=== PATIENT | male | born 1955 | race Caucasian/White ===

== ENCOUNTER 2016-07-31 10:10 | Emergency (ER) | payer OTHER ==
[2016-07-31 10:50] VITALS: BP 142/81
[2016-07-31] MEDS ORDERED: Tetan/Diph/Pertus SYR(Tdap)* 0.5 ML SYR(BOOSTRIX) use SYR IM ONE (11:05)
--- NOTE | 2016-07-31 11:10 | UC ---
Skin Complaint HPI - HPI Summary HPI Summary: cleaning under bleachers, stood up and hit his head. Bled all over the floor. No LOC. Needs tetanus update. No other injury - History of Current Complaint Chief Complaint: UCHeadInjury Time Seen by Provider: 07/31/16 11:00 Stated Complaint: HEAD LACERATION Hx Obtained From: Patient, Family/Offline Cutter Onset/Duration: Sudden Onset, Lasting Hours - 2 Timing: Constant Onset Severity: Moderate Current Severity: Mild Location: Other - top of scalp Character: Painful Aggravating: Touch Alleviating: Nothing Associated Signs & Symptoms: Positive: Bruising, Tenderness Related History: Trauma - Allergy/Home Medications Allergies/Adverse Reactions: Allergies Allergy/AdvReac Type Severity Reaction Status Date / Time Acetaminophen Allergy Nausea Verified 07/31/16 10:50 [From Tylenol with Codeine #3] Codeine Allergy Nausea Verified 07/31/16 10:50 [From Tylenol with Codeine #3] Home Medications: Home Medications NK [No Home Medications Reported] 07/31/16 [History Confirmed 07/31/16] Review of Systems Constitutional: Negative Skin: Bruising, Other - laceration scalp Eyes: Negative ENT: Negative Respiratory: Negative Cardiovascular: Negative Gastrointestinal: Negative Genitourinary: Negative Motor: Negative Neurovascular: Negative Musculoskeletal: Negative Neurological: Negative Psychological: Negative All Other Systems Reviewed And Are Negative: Yes PMH/Surg Hx/FS Hx/Imm Hx Previously Healthy: Yes Endocrine History Of: Denies: Diabetes, Thyroid Disease Cardiovascular History Of: Denies: Cardiac Disorders, Hypertension Respiratory History Of: Denies: COPD, Asthma GI/ History Of: Denies: Ulcer - Surgical History Surgical History: None - Family History Known Family History: Negative: Respiratory Disease - Social History 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 Lives: With Family Alcohol Use: None Substance Use Type: None Smoking Status (MU): Unknown if Ever Smoked Type: Smokeless Tobacco Physical Exam Triage Information Reviewed: Yes Appearance: Well-Appearing, No Pain Distress, Well-Nourished Vital Signs: Initial Vital Signs Temp 98.0 F 07/31/16 10:45 Pulse 80 07/31/16 10:45 Resp 18 07/31/16 10:45 BP 142/81 07/31/16 10:45 Pulse Ox 97 07/31/16 10:45 Vital Signs Reviewed: Yes Eye Exam: Normal ENT Exam: Normal Neck exam: Normal Respiratory Exam: Normal Cardiovascular Exam: Normal Musculoskeletal Exam: Normal Neurological Exam: Normal Psychological Exam: Normal Skin Exam: Other - 2.5cm linear laceration on top of head. Minimal oozing. No skin loss. Laceration Repair - Laceration Repair 1 Description: Linear Laceration Size After Repair: Length (cm) - 2.5 Modified For Repair: No Cleansing Completed Via Routine Prep: Yes Irrigation With Pressure Irrigation Device: Yes Closure Material: Skin Adhesive Closure Method: Single Layer Course/Dx - Diagnoses Provider Diagnoses: scalp laceration Discharge - Discharge Plan Condition: Stable Disposition: HOME Patient Education Materials: Laceration (ED) Referrals: Albin Michel MD [Primary Care Provider] - Additional Instructions: Try not to peel off the glue for at least 2 or 3 days. YOu can get it wet in the shower, but don't scrub or scratch the area. The glue will peel off on its own after 5 or 6 days. It will protect the cut, keep it from bleeding, and keep infection out. You had a tetanus shot today. You will need another around the year 2024
== END 2016-07-31 11:40 | disposition home or self-care (01) ==
LOC: UCEAST 10:10
DX: S01.01XA Laceration without foreign body of scalp, initial encounter (principal); Z23 Encounter for immunization; W22.09XA Striking against other stationary object, initial encounter; Y93.9 Activity, unspecified; Z88.5 Allergy status to narcotic agent
CPT/HCPCS: 12001; 90471; 90715; 99201; G0463

== ENCOUNTER 2016-12-23 13:52 | Emergency (ER) | payer BC, OTHER ==
[2016-12-23 14:00] VITALS: BP 136/81
--- NOTE | 2016-12-23 18:05 | UC ---
Mary Kate Fish Alfonso, scribed for Evert Stack MD on 12/23/16 at 1531 . UC General HPI - HPI Summary HPI Summary: This patient is a 61 year old M presenting to [facility] accompanied by sister with a chief complaint of febrile illness since 10 days ago. Pt reports that his symptoms are worse as of today. Pt was diagnosed with sinusitis 10 days ago. Pt was diagnosed with pneumonia 3 days ago. He was prescribed Cefuroxime BID, Azithromycin, and Guaifenesin AC. Sx aggravated and alleviated by nothing. Pt reports diaphoresis, productive cough, rhinorrhea, sinus congestion, loss of appetite, and an ear ache. Pt denies calf swelling. Patient medications reviewed this visit. - History of Current Complaint Chief Complaint: UCRespiratory Stated Complaint: PNEUMONIA Time Seen by Provider: 12/23/16 15:19 Hx Obtained From: Patient, Family/Track Machine Operator Repairer - Sister Onset/Duration: Sudden Onset, Lasting Days - 10, Worse Since - yesterday Timing: Constant Onset Severity: Moderate Current Severity: Moderate Pain Intensity: 3 - /10 Aggravating: Nothing Alleviating: Nothing Associated Signs & Symptoms: Positive: Other - Positive diaphoresis, productive cough, rhinorrhea, sinus congestion, loss of appetite, and an ear ache; negative calf swelling. - Allergy/Home Medications Allergies/Adverse Reactions: Allergies Allergy/AdvReac Type Severity Reaction Status Date / Time Acetaminophen Allergy Nausea Verified 07/31/16 10:50 [From Tylenol with Codeine #3] Codeine Allergy Nausea Verified 07/31/16 10:50 [From Tylenol with Codeine #3] Home Medications: Home Medications Azithromycin [Azithromycin 500 MG TAB] 500 mg PO 12/23/16 [History] Guaifenesin-Codeine [Coditussin AC 200-10 mg/5Ml] 1 liq PO 12/23/16 [History] PMH/Surg Hx/FS Hx/Imm Hx - Surgical History Surgical History: None - Family History Known Family History: Negative: Respiratory Disease - Social History Alcohol Use: None Substance Use Type: None Smoking Status (MU): Unknown if Ever Smoked Type: Smokeless Tobacco Review of Systems Constitutional: Fever, Other - Positive diaphoresis ENT: Ear Ache, Sinus Congestion, Other - Positive rhinorrhea Respiratory: Cough - productive Gastrointestinal: Other - Positive loss of appetite Musculoskeletal: Other: - Negative calf swelling. All Other Systems Reviewed And Are Negative: Yes Physical Exam Triage Information Reviewed: Yes Appearance: Well-Appearing, No Pain Distress Vital Signs: Initial Vital Signs Temp 97.9 F 12/23/16 13:55 Pulse 90 12/23/16 13:55 Resp 18 12/23/16 13:55 BP 136/81 12/23/16 13:55 Pulse Ox 95 12/23/16 13:55 Vital Signs Reviewed: Yes Eyes: Positive: Other: - EOMI ALEC ENT: Positive: Other: - Yellow sputum. Rhinorrhea. Neck: Positive: Supple, Nontender Respiratory: Positive: No respiratory distress, Rhonchi Cardiovascular: Positive: RRR Abdomen Description: Positive: Nontender, Soft Bowel Sounds: Positive: Present Musculoskeletal: Positive: Strength Intact Neurological: Positive: Alert Psychological: Positive: Age Appropriate Behavior Course/Dx - Course Course Of Treatment: RX TESSALON PERLES. CONTINUE ZPACK. PATIENT OVERALL IS IMPROVING. RETURN IF WORSE. - Differential Dx - Multi-Symptom Provider Diagnoses: BRONCHITIS/SINUSITIS WITH COUGH Discharge - Discharge Plan Condition: Stable Disposition: HOME Prescriptions: Benzonatate CAP* [Tessalon 100 MG CAP*] 100 mg PO TID PRN #15 cap PRN Reason: Cough Forms: *Work Release Referrals: Sheryl Whitley MD [Primary Care Provider] - Additional Instructions: FOLLOW UP WITH YOUR DOCTOR. GET RECHECKED FOR ANY WORSENING OF YOUR CONDITION OR QUESTIONS OR CONCERNS. The documentation as recorded by the Mary Kate merritt Alfonso accurately reflects the service I personally performed and the decisions made by me, Evert Stack MD.
== END 2016-12-23 15:43 | disposition home or self-care (01) ==
LOC: UCEAST 13:52
DX: J40 Bronchitis, not specified as acute or chronic (principal); J32.9 Chronic sinusitis, unspecified
CPT/HCPCS: 99212; G0463

== ENCOUNTER 2016-12-24 07:26 | Inpatient (IN) | payer BC ==
[2016-12-24] MEDS ORDERED: Albuterol/Ipratropium NEB.SOL* Albuterol 2.5 MG/Ipratropium 0.5 MG 3 ML INH ONE (08:23)
[2016-12-24] MEDS: NS 0.9% 1000 ML* 3,000 ML IV ONE ×2 (08:35→10:23)
[2016-12-24 08:43] LABS: Hematocrit 41 % (42-52); Hemoglobin 13.5 g/dl (14.0-18.0); Mean Corpuscular HGB Conc 33 g/dl (31-36); Mean Corpuscular Hemoglobin 29 pg (27-31); Mean Corpuscular Volume 88 fL (80-94); Mean Platelet Volume 7 um3 (7.4-10.4); Red Blood Count 4.66 10^6/ul (4.0-5.4); Red Cell Distribution Width 13 % (10.5-15); White Blood Count 8.7 10^3/ul (3.5-10.8)
[2016-12-24 09:03] LABS: Albumin 3.8 g/dL (3.2-5.2); BUN/Creatinine Ratio 10.8 (8-20); C Reactive Protein 11.33 mg/L (< 5.00); Calcium 9.3 mg/dL (8.6-10.3); EGFR Non-African American 83.2 (>60); Globulin 3.1 g/dL (2-4); Potassium 3.6 mmol/L (3.5-5.0); Total Bilirubin 0.4 mg/dL (0.2-1.0); Total Protein 6.9 g/dL (6.4-8.9)
[2016-12-24] MEDS ORDERED: Azithromycin IV(*) 500 MG in NS 0.9% 250 ML* 250 ML IVPB ONE (10:03)
[2016-12-24] MEDS ORDERED: cefTRIAXone(*) 1 GM in NS 0.9% 50 ML* 50 ML IVPB ONE (10:03)
[2016-12-24] MEDS ORDERED: Benzonatate CAP* 100 MG PO PRN (10:15)
[2016-12-24] MEDS ORDERED: Acetaminophen TAB* 325 MG PO PRN (10:18)
--- NOTE | 2016-12-24 10:19 | RAD ---
INDICATION: Cough, shortness of breath. COMPARISON: Comparison is made with a prior chest x-ray study from March 27, 2010. TECHNIQUE: Dual-energy PA and lateral views of the chest were obtained. FINDINGS: The heart is within normal limits in size. Mediastinal and hilar contours appear within normal limits. There is a relatively prominent infiltrate present at the right lung base involving the right middle and lower lobes most consistent with pneumonia. There is a trace right pleural effusion. The left lung appears clear. IMPRESSION: RIGHT MIDDLE AND LOWER LOBE INFILTRATES MOST CONSISTENT WITH PNEUMONIA.
[2016-12-24] MEDS: Heparin VIAL(*) 5000 UNITS/ML VIAL (FIVE THOUSAND) SUBCUT SCH ×2 (14:58→21:34)
[2016-12-24 15:25] LABS: Urine Bilirubin Negative (Negative); Urine Glucose Negative (Negative); Urine Nitrite Negative (Negative)
--- NOTE | 2016-12-24 15:53 | HP ---
HISTORY AND PHYSICAL: DATE OF ADMISSION: 12/24/16 PRIMARY CARE PHYSICIAN: He has no primary care physician. CHIEF COMPLAINT: Cough and fever. HISTORY OF PRESENT ILLNESS: The patient is a 61-year-old gentleman. Since last week, he thought he was coming down with the sinus inflection and went to [facility], who agreed and put him on antibiotic, but he does not know the name of. He did not get better, then went to his sister's doctor, who thought he had bronchitis and he got a different antibiotic. Still with no improvement, he went to [facility], where he got some medicine for the cough. Because of no improvement, he finally came to the ER, where he was evaluated. He has lots of postnasal drip, cough productive of yellow thick phlegm. He has wheezing. He had shortness of breath last night, where he could not catch his breath, but it is better today. He has no chest pain, but he has fevers and chills. In the ED, the patient was evaluated and appears to have a right lower lobe infiltrate on x-ray. PAST MEDICAL HISTORY: Significant only for migraine and he had a broken leg that was repaired in 3 places at [facility] several years ago. MEDICATIONS: He is currently on no medications except Excedrin for migraine. ALLERGIES: Adverse reaction to acetaminophen and codeine. FAMILY HISTORY: Father is alive, has hypertension, at 85 years old. Mother at 55 of unknown cancer. SOCIAL HISTORY: Does not smoke, but chews tobacco. Ex-alcohol abuse, quit a year ago after a DWI. No recreational drug use. 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 He is not . He has no children. REVIEW OF SYSTEMS: A 14-point review of systems was completed with the patient. All pertinent positives and negatives are in the history of present illness, otherwise negative. PHYSICAL EXAMINATION GENERAL: A pleasant gentleman, disheveled, sitting up in bed, in no acute distress. VITAL SIGNS: Temperature 98 degrees, heart rate 85 beats per minute, respiratory rate 16 breaths per minute, pulse ox 96%, blood pressure is 109/59. HEENT: Normocephalic and atraumatic. Pupils are equal, round, and reactive to light. Moist mucous membranes. NECK: Supple. No JVD, bruits, palpable thyroid or lymphadenopathy. CHEST: Clear to auscultation and percussion bilaterally. CARDIOVASCULAR: S1, S2 appreciated. Regular rate and rhythm. ABDOMEN: Positive bowel sounds in all 4 quadrants. Soft, nontender, nondistended. No hepatosplenomegaly. EXTREMITIES: No cyanosis, clubbing, or edema. +2 peripheral pulses bilaterally. NEURO: Alert and oriented x3. Moves all extremities. SKIN: No rashes or abnormalities. DIAGNOSTIC STUDIES/LAB DATA: White count 8.7, hemoglobin 13.5, hematocrit 41, platelets 412. Sodium 137, potassium 3.6, chloride 103, CO2 of 26, BUN 10, creatinine 1.93, glucose is 94. Chest x-ray was interpreted by Radiology as right middle and lower lobe infiltrate, most consistent with pneumonia. EKG show normal sinus rhythm at 97 beats per minute, normal axis, some nonspecific ST-T wave changes. ASSESSMENT AND PLAN: 1. New right lower lobe pneumonia. The patient has failed outpatient treatment. We will place on Rocephin and Zithromax IV. Check sputum C and S, urine for Legionella and Pneumococcal antigen. Tessalon Perles for cough. 2. FEN, regular diet. 3. DVT prophylaxis, heparin subcu 4. The patient is a full code. TIME SPENT: Over 75 minutes was spent on this H and P, more than 45 minutes of which was spent in direct mgdb-to-pdye contact with the patient in evaluation, physical exam, and counseling and coordination of care. [id number]/[facility] #: [id number] [place]
--- NOTE | 2016-12-24 18:58 | ED ---
Rosalie Fish Seung-Jae, scribed for Sal Cristina MD on 12/24/16 at 1045 . Respiratory - HPI Summary HPI Summary: Pt is a 61 y/o M presenting to the ED with c/o coughing and congestion. Onset was during last midnight. The associated Sx are SOB and fever. The coughing is not worsened by walking or sitting up. Pt denies edema, N/V, CP, and pain in legs. Pt had taken 1 abx pill yesterday. Pt does not have asthma and does not smoke. 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 Has a hx of post nasal drip. - History of Current Complaint Chief Complaint: EDGeneral Stated Complaint: COUGH/CHEST CONGESTION Time Seen by Provider: 12/24/16 08:10 Hx Obtained From: Patient Onset/Duration: Sudden Onset Timing: Constant Pain Intensity: 0 Associated Signs and Symptoms: Fever - subjective fever, SOB, Nasal Congestion - Allergy/Home Medications Allergies/Adverse Reactions: Allergies Allergy/AdvReac Type Severity Reaction Status Date / Time Acetaminophen Allergy Nausea Verified 07/31/16 10:50 [From Tylenol with Codeine #3] Codeine Allergy Nausea Verified 07/31/16 10:50 [From Tylenol with Codeine #3] PMH/Surg Hx/FS Hx/Imm Hx Endocrine/Hematology History: Denies: Hx Diabetes, Hx Thyroid Disease Cardiovascular History: Denies: Hx Hypertension Respiratory History: Denies: Hx Asthma, Hx Chronic Obstructive Pulmonary Disease (COPD) GI History: Denies: Hx Ulcer Infectious Disease History: No Infectious Disease History: Denies: Hx Hepatitis, Hx Human Immunodeficiency Virus (HIV), Traveled Outside the [place] in Last 30 Days - Family History Known Family History: Negative: Respiratory Disease - Social History Alcohol Use: None Alcohol Amount: used to drink, has since quit Substance Use Type: Reports: None Smoking Status (MU): Never Smoked Tobacco Type: Smokeless Tobacco Review of Systems Positive: Fever Positive: Other - nose congestion Positive: Shortness Of Breath, Cough, Other - negative asthma Negative: Vomiting, Nausea Positive: Other - negative pain in legs . Negative: Edema All Other Systems Reviewed And Are Negative: Yes Physical Exam - Summary Physical Exam Summary: The patient is well-nourished in no acute distress and in no acute pain. The skin is warm and dry and skin color reflects adequate perfusion. good skin turgor. HEENT: The head is normocephalic and atraumatic. The pupils are equal and reactive. The conjunctivae are clear and without drainage. Nares are patent and without drainage. Mouth reveals moist mucous membranes. The external ears are intact. The ear canals are patent and without drainage. The tympanic membranes are intact. Post nasal drip. no sinus tenderness. erythema in posterial pharynx. Neck is supple with full range of motion and non-tender. There are no carotid bruits. There is neck vein distension. no cervical adenopathy Respiratory: Chest is non-tender. Lungs are clear to auscultation and breath sounds are symmetrical and equal. erythema in posterior pharynx. wheezing and right rhonchi Cardiovascular: Hear is regular rate and rhythm. There is no murmur or rub auscultated. There is no peripheral edema and pulses are symmetrical and equal. Abdomen: The abdomen is soft and non-tender. There are normal bowel sounds heard in all four quadrants and there is no organomegaly palpated. Musculoskeletal: There is no back pain noted. Extremities are non-tender with full range of motion. There is good capillary refill. There is no peripheral edema or calf tenderness elicited. Neurological: Patient is alert and oriented to person, place and time. The patient has symmetrical motor strength in all four extremities. Cranial nerves are grossly intact. Deep tendon reflexes are symmetrical and equal in all four extremities. Psychiatric: The patient has an appropriate affect and does not exhibit any anxiety or depression. PE: post nasal drip. no sinus tenderness. heart regualr. no cervical adenopathy. wheezing and right rhonchi. neck pain distension. good skin turbar. 2 second capillary refill. Vital Signs On Initial Exam: Initial Vitals Temp Pulse Resp BP Pulse Ox 97.8 F 89 17 126/67 98 12/24/16 07:31 12/24/16 07:31 12/24/16 07:31 12/24/16 07:31 12/24/16 07:31 - [place] Coma Scale Coma Scale Total: 15 Diagnostics - Vital Signs Vital Signs Temp Pulse Resp BP Pulse Ox 12/24/16 08:00 77 90 12/24/16 07:41 87 95 12/24/16 07:40 97.8 F 86 16 120/66 94 07/17/17 07:39 120/66 12/24/16 07:31 97.8 F 89 17 126/67 98 - Laboratory Lab Results: Lab Results 12/24/16 12/24/16 12/24/16 Range/Units 08:35 08:35 08:35 WBC 8.7 (3.5-10.8) 10^3/ul RBC 4.66 (4.0-5.4) 10^6/ul Hgb 13.5 L (14.0-18.0) g/dl Hct 41 L (42-52) % MCV 88 (80-94) fL MCH 29 (27-31) pg MCHC 33 (31-36) g/dl RDW 13 (10.5-15) % Plt Count 412 (150-450) 10^3/ul MPV 7 L (7.4-10.4) um3 Neut % (Auto) 74.7 (38-83) % Lymph % (Auto) 14.0 L (25-47) % [place] % (Auto) 5.3 (1-9) % Eos % (Auto) 4.6 (0-6) % Baso % (Auto) 1.4 (0-2) % Absolute Neuts (auto) 6.5 (1.5-7.7) 10^3/ul Absolute Lymphs (auto) 1.2 (1.0-4.8) 10^3/ul Absolute Monos (auto) 0.5 (0-0.8) 10^3/ul Absolute Eos (auto) 0.4 (0-0.6) 10^3/ul Absolute Basos (auto) 0.1 (0-0.2) 10^3/ul Absolute Nucleated RBC 0 10^3/ul Nucleated RBC % 0 Sodium 137 (133-145) mmol/L Potassium 3.6 (3.5-5.0) mmol/L Chloride 103 (101-111) mmol/L Carbon Dioxide 26 (22-32) mmol/L Anion Gap 8 (2-11) mmol/L BUN 10 (6-24) mg/dL Creatinine 0.93 (0.67-1.17) mg/dL Est GFR ( Amer) 107.0 (>60) Est GFR (Non-Af Amer) 83.2 (>60) BUN/Creatinine Ratio 10.8 (8-20) Glucose 94 (70-100) mg/dL Lactic Acid 0.8 (0.5-2.0) mmol/L Calcium 9.3 (8.6-10.3) mg/dL Total Bilirubin 0.40 (0.2-1.0) mg/dL AST 15 (13-39) U/L ALT 16 (7-52) U/L Alkaline Phosphatase 68 (34-104) U/L Troponin I 0.00 (<0.04) ng/mL C-Reactive Protein 11.33 H (< 5.00) mg/L B-Natriuretic Peptide ( - 100) pg/mL Total Protein 6.9 (6.4-8.9) g/dL Albumin 3.8 (3.2-5.2) g/dL Globulin 3.1 (2-4) g/dL Albumin/Globulin Ratio 1.2 (1-3) Urine Color Urine Appearance Urine pH (5-9) Ur Specific [place] (1.010-1.030) Urine Protein (Negative) Urine Ketones (Negative) Urine Blood (Negative) Urine Nitrate (Negative) Urine Bilirubin (Negative) Urine Urobilinogen (Negative) Ur Leukocyte Esterase (Negative) Urine Glucose (Negative) 12/24/16 12/24/16 Range/Units 08:35 09:08 WBC (3.5-10.8) 10^3/ul RBC (4.0-5.4) 10^6/ul Hgb (14.0-18.0) g/dl Hct (42-52) % MCV (80-94) fL MCH (27-31) pg MCHC (31-36) g/dl RDW (10.5-15) % Plt Count (150-450) 10^3/ul MPV (7.4-10.4) um3 Neut % (Auto) (38-83) % Lymph % (Auto) (25-47) % [place] % (Auto) (1-9) % Eos % (Auto) (0-6) % Baso % (Auto) (0-2) % Absolute Neuts (auto) (1.5-7.7) 10^3/ul Absolute Lymphs (auto) (1.0-4.8) 10^3/ul Absolute Monos (auto) (0-0.8) 10^3/ul Absolute Eos (auto) (0-0.6) 10^3/ul Absolute Basos (auto) (0-0.2) 10^3/ul Absolute Nucleated RBC 10^3/ul Nucleated RBC % Sodium (133-145) mmol/L Potassium (3.5-5.0) mmol/L Chloride (101-111) mmol/L Carbon Dioxide (22-32) mmol/L Anion Gap (2-11) mmol/L BUN (6-24) mg/dL Creatinine (0.67-1.17) mg/dL Est GFR ( Amer) (>60) Est GFR (Non-Af Amer) (>60) BUN/Creatinine Ratio (8-20) Glucose (70-100) mg/dL Lactic Acid (0.5-2.0) mmol/L Calcium (8.6-10.3) mg/dL Total Bilirubin (0.2-1.0) mg/dL AST (13-39) U/L ALT (7-52) U/L Alkaline Phosphatase (34-104) U/L Troponin I (<0.04) ng/mL C-Reactive Protein (< 5.00) mg/L B-Natriuretic Peptide 32 ( - 100) pg/mL Total Protein (6.4-8.9) g/dL Albumin (3.2-5.2) g/dL Globulin (2-4) g/dL Albumin/Globulin Ratio (1-3) Urine Color Straw Urine Appearance Clear Urine pH 7.0 (5-9) Ur Specific [place] 1.005 L (1.010-1.030) Urine Protein Negative (Negative) Urine Ketones Trace H (Negative) Urine Blood Negative (Negative) Urine Nitrate Negative (Negative) Urine Bilirubin Negative (Negative) Urine Urobilinogen Negative (Negative) Ur Leukocyte Esterase Negative (Negative) Urine Glucose Negative (Negative) Result Diagrams: 12/24/16 08:35 12/24/16 08:35 Lab Statement: Any lab studies that have been ordered have been reviewed, and results considered in the medical decision making process. - Radiology Chest XR Xray Interpretation: Positive (See Comments) - Left lower lobe PNA. Radiology Interpretation Completed By: Radiologist Disposition - Course Assessment/Plan: pt was on two course of outpatient antibiotics. pt has increased cough and sob. chest x-ray reveals an infiltrate of right lower lobe. pt stared on Rocephin and Zithromax. pt. was administered Duoneb treatment. hospitalist, Dr. Rosa was consulted for admission. - Differential Dx - Cardiopulmonary Differential Diagnoses - Cardiopulmonary: Acute Dyspnea, CHF, Lower Resp Infection - Diagnoses Provider Diagnoses: Right lower lobe pneumonia - Physician Notifications Discussed Care Of Patient With: Baldemar Rosa Time Discussed With Above Provider: 10:10 - Critical Care Time Critical Care Time: 30-74 min - 30 minutes Discharge - Discharge Plan Condition: Good Disposition: ADMITTED TO [facility] The documentation as recorded by the Rosalie merritt Seung-Jae accurately reflects the service I personally performed and the decisions made by , Sal Cristina MD.
[2016-12-25] MEDS: Heparin VIAL(*) 5000 UNITS/ML VIAL (FIVE THOUSAND) SUBCUT SCH ×3 (06:16→21:38)
--- NOTE | 2016-12-25 08:51 | PN ---
Subjective Date of Service: 12/25/16 Interval History: Pt feels SOB with exertion. coughs up yellow sputum. good appetite Objective Active Medications: Acetaminophen (Tylenol Tab*) 650 mg PO Q4H PRN PRN Reason: FEVER/PAIN Benzonatate (Tessalon Cap*) 200 mg PO TID PRN PRN Reason: COUGH Heparin Sodium (Porcine) (Heparin Vial(*)) 5,000 units SUBCUT Q8HR RHETT Last Admin: 12/25/16 06:16 Dose: 5,000 units Ceftriaxone Sodium 1,000 mg/ (Sodium Chloride) 50 mls @ 200 mls/hr IVPB Q24H RHETT Azithromycin 500 mg/ Sodium (Chloride) 250 mls @ 250 mls/hr IVPB Q24H RHETT Pneumococcal Polyvalent Vaccine (Pneumococcal Vac Polyvalent*) 0.5 ml IM .ONCE ONE Stop: 12/25/16 09:01 Last Admin: 12/25/16 07:56 Dose: 0.5 ml Vital Signs 12/24/16 12/24/16 12/24/16 12:31 12:36 15:17 Temperature 98.0 F 98 F 98.5 F Pulse Rate 85 85 85 Respiratory 16 16 17 Rate Blood Pressure 109/59 109/59 98/64 (mmHg) O2 Sat by Pulse 96 96 98 Oximetry 12/24/16 12/24/16 12/25/16 19:20 23:34 03:14 Temperature 98.3 F 98.2 F Pulse Rate 73 77 Respiratory 17 16 18 Rate Blood Pressure 81/50 149/100 (mmHg) O2 Sat by Pulse 96 98 Oximetry 12/25/16 12/25/16 04:32 07:33 Temperature 98.0 F 98.3 F Pulse Rate 72 66 Respiratory 16 18 Rate Blood Pressure 95/50 106/62 (mmHg) O2 Sat by Pulse 97 94 Oximetry Oxygen Devices in Use Now: None Appearance: 61 yo M in nAD, aAOx3 Eyes: No Scleral Icterus, PERRLA Ears/Nose/Mouth/Throat: NL Teeth, Lips, Gums, Mucous Membranes Moist Neck: NL Appearance and Movements; NL JVP, Trachea Midline Respiratory: Symmetrical Chest Expansion and Respiratory Effort, - - decreased breath sounds at RLL Cardiovascular: NL Sounds; No Murmurs; No JVD, RRR Abdominal: NL Sounds; No Tenderness; No Distention Lymphatic: No Cervical Adenopathy Extremities: No Edema, No Clubbing, Cyanosis Skin: No Rash or Ulcers, No Nodules or Sclerosis Neurological: Alert and Oriented x 3, NL Muscle Strength and Tone Result Diagrams: 12/24/16 08:35 12/24/16 08:35 Additional Lab and Data: Lab Results 12/24/16 12/24/16 12/24/16 Range/Units 08:35 08:35 08:35 WBC 8.7 (3.5-10.8) 10^3/ul RBC 4.66 (4.0-5.4) 10^6/ul Hgb 13.5 L (14.0-18.0) g/dl Hct 41 L (42-52) % MCV 88 (80-94) fL MCH 29 (27-31) pg MCHC 33 (31-36) g/dl RDW 13 (10.5-15) % Plt Count 412 (150-450) 10^3/ul MPV 7 L (7.4-10.4) um3 Neut % (Auto) 74.7 (38-83) % Lymph % (Auto) 14.0 L (25-47) % [place] % (Auto) 5.3 (1-9) % Eos % (Auto) 4.6 (0-6) % Baso % (Auto) 1.4 (0-2) % Absolute Neuts (auto) 6.5 (1.5-7.7) 10^3/ul Absolute Lymphs (auto) 1.2 (1.0-4.8) 10^3/ul Absolute Monos (auto) 0.5 (0-0.8) 10^3/ul Absolute Eos (auto) 0.4 (0-0.6) 10^3/ul Absolute Basos (auto) 0.1 (0-0.2) 10^3/ul Absolute Nucleated RBC 0 10^3/ul Nucleated RBC % 0 Sodium 137 (133-145) mmol/L Potassium 3.6 (3.5-5.0) mmol/L Chloride 103 (101-111) mmol/L Carbon Dioxide 26 (22-32) mmol/L Anion Gap 8 (2-11) mmol/L BUN 10 (6-24) mg/dL Creatinine 0.93 (0.67-1.17) mg/dL Est GFR ( Amer) 107.0 (>60) Est GFR (Non-Af Amer) 83.2 (>60) BUN/Creatinine Ratio 10.8 (8-20) Glucose 94 (70-100) mg/dL Lactic Acid 0.8 (0.5-2.0) mmol/L Calcium 9.3 (8.6-10.3) mg/dL Total Bilirubin 0.40 (0.2-1.0) mg/dL AST 15 (13-39) U/L ALT 16 (7-52) U/L Alkaline Phosphatase 68 (34-104) U/L Troponin I 0.00 (<0.04) ng/mL C-Reactive Protein 11.33 H (< 5.00) mg/L B-Natriuretic Peptide ( - 100) pg/mL Total Protein 6.9 (6.4-8.9) g/dL Albumin 3.8 (3.2-5.2) g/dL Globulin 3.1 (2-4) g/dL Albumin/Globulin Ratio 1.2 (1-3) Urine Color Urine Appearance Urine pH (5-9) Ur Specific [place] (1.010-1.030) Urine Protein (Negative) Urine Ketones (Negative) Urine Blood (Negative) Urine Nitrate (Negative) Urine Bilirubin (Negative) Urine Urobilinogen (Negative) Ur Leukocyte Esterase (Negative) Urine Glucose (Negative) 12/24/16 12/24/16 Range/Units 08:35 09:08 WBC (3.5-10.8) 10^3/ul RBC (4.0-5.4) 10^6/ul Hgb (14.0-18.0) g/dl Hct (42-52) % MCV (80-94) fL MCH (27-31) pg MCHC (31-36) g/dl RDW (10.5-15) % Plt Count (150-450) 10^3/ul MPV (7.4-10.4) um3 Neut % (Auto) (38-83) % Lymph % (Auto) (25-47) % [place] % (Auto) (1-9) % Eos % (Auto) (0-6) % Baso % (Auto) (0-2) % Absolute Neuts (auto) (1.5-7.7) 10^3/ul Absolute Lymphs (auto) (1.0-4.8) 10^3/ul Absolute Monos (auto) (0-0.8) 10^3/ul Absolute Eos (auto) (0-0.6) 10^3/ul Absolute Basos (auto) (0-0.2) 10^3/ul Absolute Nucleated RBC 10^3/ul Nucleated RBC % Sodium (133-145) mmol/L Potassium (3.5-5.0) mmol/L Chloride (101-111) mmol/L Carbon Dioxide (22-32) mmol/L Anion Gap (2-11) mmol/L BUN (6-24) mg/dL Creatinine (0.67-1.17) mg/dL Est GFR ( Amer) (>60) Est GFR (Non-Af Amer) (>60) BUN/Creatinine Ratio (8-20) Glucose (70-100) mg/dL Lactic Acid (0.5-2.0) mmol/L Calcium (8.6-10.3) mg/dL Total Bilirubin (0.2-1.0) mg/dL AST (13-39) U/L ALT (7-52) U/L Alkaline Phosphatase (34-104) U/L Troponin I (<0.04) ng/mL C-Reactive Protein (< 5.00) mg/L B-Natriuretic Peptide 32 ( - 100) pg/mL Total Protein (6.4-8.9) g/dL Albumin (3.2-5.2) g/dL Globulin (2-4) g/dL Albumin/Globulin Ratio (1-3) Urine Color Straw Urine Appearance Clear Urine pH 7.0 (5-9) Ur Specific [place] 1.005 L (1.010-1.030) Urine Protein Negative (Negative) Urine Ketones Trace H (Negative) Urine Blood Negative (Negative) Urine Nitrate Negative (Negative) Urine Bilirubin Negative (Negative) Urine Urobilinogen Negative (Negative) Ur Leukocyte Esterase Negative (Negative) Urine Glucose Negative (Negative) Microbiology and Other Data: Microbiology 12/24/16 15:30 Gram Stain - Final Sputum Expectorated Assess/Plan/Problems-Billing Assessment: 61 yo M with PNA that failed outpatient tx - Patient Problems (1) Community acquired pneumonia Comment: Pt had been on unknown anitbiotic x 1 week and Cefdinir and Azithro foir just a couple of days prior to admission. Feels better. Plan to cont IV antibiotics x 24H, then possible d/c (2) DVT prophylaxis Comment: heparin sc Status and Disposition: inpatient for pneumonia that failed outpatient tx.
[2016-12-25] MEDS ORDERED: Pneumococcal Vac Polyvalent* 0.5 ML VIAL IM ONE (09:00)
[2016-12-25] MEDS: Azithromycin IV(*) 500 MG in NS 0.9% 250 ML* 250 ML IVPB SCH (11:04)
[2016-12-25] MEDS: cefTRIAXone VIAL(*) 1,000 MG in NS 0.9% 50 ML* 50 ML IVPB SCH (12:22)
[2016-12-26] MEDS: Heparin VIAL(*) 5000 UNITS/ML VIAL (FIVE THOUSAND) SUBCUT SCH (06:01)
[2016-12-26] MEDS: Azithromycin IV(*) 500 MG in NS 0.9% 250 ML* 250 ML IVPB SCH (10:49)
[2016-12-26 10:57] VITALS: BP 106/56
[2016-12-26] MEDS: cefTRIAXone VIAL(*) 1,000 MG in NS 0.9% 50 ML* 50 ML IVPB SCH (12:01)
--- NOTE | 2016-12-27 07:31 | DS ---
CC: Dr. Whitley * DISCHARGE SUMMARY: DATE OF ADMISSION: 12/24/16 DATE OF DISCHARGE: 12/26/16 PRIMARY CARE PROVIDER: Dr. Sheryl Whitley DISCHARGE DIAGNOSES: Community-acquired pneumonia of the right middle and right lower lobe that failed outpatient treatment. MEDICATIONS AT DISCHARGE: Include: 1. Cefdinir 300 mg p.o. b.i.d. for a total of five days. 2. Azithromycin 500 mg daily for a total of two days. The patient also is to continue Robitussin with codeine and Tessalon on a p.r.n. basis as previously taken. LABORATORY DATA/STUDIES PERFORMED: During the hospital stay included: On 12/24 white blood cell count was 8.7, hemoglobin of 13.5, hematocrit of 41, and platelets of 412. Sodium 137, potassium of 3.6, chloride 103, carbon dioxide 26 , BUN 10, creatinine 0.93. Liver functions were unremarkable and C-reactive protein of 11.3. The patient's portable chest x-ray obtained at admission showed right middle and right lower lobe infiltrate. HOSPITALIZATION COURSE: Jorge Sheth is a 61-year-old male who presented complaining of cough, continuation of cough despite being prescribed cefdinir and azithromycin a day prior by his primary care provider. Approximately a week prior to his presentation and admission, the patient was treated with unknown antibiotics from [facility] for sinusitis. His x-ray at admission showed right middle and right lower pneumonia. Since the patient did not feel subjectively better than prior to antibiotic treatment , he was admitted for community-acquired pneumonia with failure of outpatient treatment. The patient did well for the past two days of his hospital stay. He still complains of coughing p.o. sputum, but he never was hypoxemic and he ambulated without any hypoxia noted. He is going to be discharged home with a recommendation to follow up with Dr. Sheryl Whitley in approximately four to seven days. PHYSICAL EXAMINATION: Physical exam at time of discharge, blood pressure 106/56 , heart rate of 76 and regular, respiratory 16, and oxygen saturation 97% on room air and temperature 98.4. General: Very pleasant 61-year-old male who is in no acute distress. Alert, awake, and oriented x3. HEENT: Head atraumatic, normocephalic. Eyes: Pupils are equal, reactive to light and accommodation. Oropharynx is clear. Mucosa moist. Neck: Supple, no JVD. No bruits bilaterally. Cardiovascular: Regular rate and rhythm. No murmurs. Respiratory : Right lower lobe rhonchi and crackles. Abdomen: Soft, nontender, bowel sounds present in all 4 quadrants. Extremities: There is no edema. Pulses +2 bilaterally. There is no clubbing or cyanosis. Neuro Evaluation: Nonfocal. Cranial nerves II through XII grossly intact. Motor strength is 5/5 bilaterally. Please also note that the patient's microbiology studies were negative for Strep pneumo antigen and legionella urine antigen. Sputum cultures were positive for gram-positive cocci and as well as gram-positive bacilli and gram- negative bacilli. Further identification of the bacteria is still pending at the time of dictation. Please note that this is a short summary of the patient's hospital stay. Please refer to further medical records for details. TIME SPENT: Approximately 35 minutes was spent on the patient's discharge. [id number]/CPS #: [id number] MTDD
== END 2016-12-26 13:50 | disposition home or self-care (01) | DRG 139 ==
LOC: ED 07:26 → MED 10:18
PROVIDERS: ADMIT Internal Medicine; ATTEND Internal Medicine
DX: J18.1 Lobar pneumonia, unspecified organism (principal); G43.909 Migraine, unspecified, not intractable, without status migrainosus; J18.9 Pneumonia, unspecified organism; R40.2412 Glasgow coma scale score 13-15, at arrival to emergency department; Z88.5 Allergy status to narcotic agent; Z88.6 Allergy status to analgesic agent; Z82.49 Family history of ischemic heart disease and other diseases of the circulatory system; Z80.9 Family history of malignant neoplasm, unspecified
CPT/HCPCS: 36415; 71020; 80053; 81003; 83605; 83880; 84484; 85025; 86140; 87040; 87070; 87205; 87899; 90732; 93005; 94640; J0456; J0696; J1644